=== PATIENT | male | born 1940 | race Caucasian/White ===

== ENCOUNTER 2021-11-17 13:58 | Emergency (ER) | payer MEDICARE, OTHER ==
[~2021-11-17] VITALS: Ht 177.8 cm; Wt 69.0 kg
[2021-11-17] MEDS ORDERED: DIATRIZOATE MEGLUMINE 300ML INFUS BTL UR ONE (14:44)
[2021-11-18 06:00] VITALS: BP 127/84
[2021-11-18] MEDS ORDERED: FINA5TAB11 PO (23:54)
[2021-11-18] MEDS ORDERED: TAMS-11 PO (23:54)
[2021-11-18] MEDS ORDERED: ALLO100T PO (23:54)
[2021-11-18] MEDS ORDERED: SILD20TA PO (23:54)
[2021-11-18] MEDS ORDERED: FURO20TA4 PO (23:54)
== END 2021-11-18 10:20 ==
LOC: ER 14:04
DX: T83.83XA Hemorrhage due to genitourinary prosthetic devices, implants and grafts, initial encounter (principal); I11.0 Hypertensive heart disease with heart failure; I50.9 Heart failure, unspecified; F03.90 Unspecified dementia, unspecified severity, without behavioral disturbance, psychotic disturbance, mood disturbance, and anxiety; Y84.6 Urinary catheterization as the cause of abnormal reaction of the patient, or of later complication, without mention of misadventure at the time of the procedure; Y92.128 Other place in nursing home as the place of occurrence of the external cause
CPT/HCPCS: 51610; 93005; 99285; Q9958; A4315

== ENCOUNTER 2021-11-18 10:37 | Inpatient (IN) | payer MEDICARE, OTHER ==
[~2021-11-18] VITALS: Ht 165.1 cm; Wt 65.1 kg
[2021-11-18] MEDS ORDERED: ALBUTEROL (0.083%) 2.5MG/3ML NEB HHN STA (11:34)
[2021-11-18] MEDS ORDERED: IPRATROPIUM BROMIDE (0.02%) 0.5MG/2.5ML NEB HHN STA (11:34)
[2021-11-18 12:00] LABS: HEMATOCRIT. 35.9 % (42.0-52.0); MEAN CORPUSCULAR HEMOGLOBIN 30.3 pg (28.0-32.0); MEAN CORPUSCULAR VOLUME 90.7 fL (80.0-94.0); MEAN PLATELET VOLUME 7.8 fl (7.4-10.4); PLATELET 256 x1000/uL (130-400); RED BLOOD CELL COUNT 3.96 mill/uL (4.7-6.1); RED CELL DISTRIBUTION WIDTH 14.9 % (11.6-14.6)
[2021-11-18 12:04] LABS: CHLORIDE 105 mEq/L (98-107)
[2021-11-18 12:20] LABS: BG BASE EXCESS 2.6 mmol/L (-2.0-2.0); BG CARBOXYHEMOGLOBIN 0.3 % (0.5-1.5); BG DEOXYHEMOGLOBIN 2.1 % (0.0-5.0); BG HCO3 ACT 28.3 mmol/L (22.0-26.0); BG METHEMOGLOBIN 0.1 % (0.0-1.5); BG OXYGEN SATURATION 97.9 % (92.0-98.5); BG OXYHEMOGLOBIN 97.5 % (94.0-97.0); BG PCO2 48.2 mmHg (35.0-45.0); BG PH 7.386 (7.350-7.450); BG PO2 115.2 mmHg (75.0-100.0); BG SAMPLE SITE RIGHT RADIAL; BG TOTAL HEMOGLOBIN 12.3 g/dL (12.0-18.0); BG VENT MODE MASK - SIMPLE
[2021-11-18] MEDS ORDERED: FUROSEMIDE 20MG/2ML VIAL IVP ONE (12:30)
[2021-11-18 12:38] LABS: PLATELET ESTIMATE NORMAL
[2021-11-18 15:30] VITALS: BP 124/58
[2021-11-18] MEDS ORDERED: POTASSIUM CHLORIDE 20MEQ TABLET SR PO SCH (15:30)
[2021-11-18 16:00] VITALS: BP 125/60
[2021-11-18] MEDS ORDERED: DIGOXIN 500MCG/2ML AMP IV SCH (18:45)
[2021-11-18] MEDS: METOPROLOL TARTRATE 25MG TABLET PO SCH (18:51)
[2021-11-18 18:54] LABS: CLARITY URINE CLEAR (CLEAR); COLOR URINE YELLOW (YELLOW); KETONES URINE NEGATIVE (NEGATIVE); LEUKOCYTE ESTERASE URINE TRACE (NEGATIVE); NITRITE URINE NEGATIVE (NEGATIVE); OCCULT BLOOD URINE 2+ (NEGATIVE); PH URINE 5.5 (4.5-8.0); PROTEIN URINE NEGATIVE (NEGATIVE); SPECIFIC GRAVITY URINE 1.011 (1.005-1.030)
[2021-11-18 19:29] LABS: CHLORIDE 106 mEq/L (98-107)
[2021-11-18 20:00] VITALS: BP 102/54
[2021-11-18] MEDS: PIPERACILLIN/TAZOBACTAM 3.375 G in DEXTROSE 5% WATER 50 ML IV SCH (20:38)
[2021-11-18] MEDS: ENOXAPARIN 40MG/0.4ML SYR SUBCUT SCH (20:39)
[2021-11-18] MEDS ORDERED: IPRATROPIUM BROMIDE (0.02%) 0.5MG/2.5ML NEB HHN PRN (20:45)
[2021-11-18] MEDS ORDERED: TAMS-11 PO (23:54)
[2021-11-18] MEDS ORDERED: FURO20TA4 PO (23:54)
[2021-11-18] MEDS ORDERED: SILD20TA PO (23:54)
[2021-11-18] MEDS ORDERED: ALLO100T PO (23:54)
[2021-11-18] MEDS ORDERED: FINA5TAB11 PO (23:54)
[2021-11-18 23:56] LABS: HEMATOCRIT 33.4 % (42.0-52.0); HEMOGLOBIN 11.2 g/dL (14.0-18.0); MEAN CORPUSCULAR HEMOGLOBIN 30.6 pg (28.0-32.0); MEAN CORPUSCULAR VOLUME 91.5 fL (80.0-94.0); PLATELET 257 x1000/uL (130-400); RED BLOOD CELL COUNT 3.65 mill/uL (4.7-6.1)
[2021-11-19] VITALS: BP 112/58
[2021-11-19 04:00] VITALS: BP 120/65
[2021-11-19] MEDS: PIPERACILLIN/TAZOBACTAM 3.375 G in DEXTROSE 5% WATER 50 ML IV SCH ×3 (05:31→21:21)
[2021-11-19] MEDS: METOPROLOL TARTRATE 25MG TABLET PO SCH ×2 (05:43→21:21)
[2021-11-19 08:00] VITALS: BP 126/80
[2021-11-19] MEDS ORDERED: FUROSEMIDE 40MG/4ML VIAL IVP SCH (09:00)
[2021-11-19] MEDS: IPRATROPIUM BROMIDE (0.02%) 0.5MG/2.5ML NEB HHN SCH ×3 (09:16→18:00)
[2021-11-19] MEDS: SPIRONOLACTONE 25MG TABLET PO SCH (09:34)
[2021-11-19 09:48] LABS: BASOPHILS % 0.7 % (0.0-2.0); HEMATOCRIT. 36.2 % (42.0-52.0); HEMOGLOBIN. 11.9 g/dL (14.0-18.0); LYMPHOCYTES % 9.6 % (20.0-50.0); MEAN CORPUSCULAR HEMOGLOBIN 30.2 pg (28.0-32.0); MEAN CORPUSCULAR VOLUME 91.9 fL (80.0-94.0); NEUTROPHILS % 83.7 % (40.0-76.0); PLATELET 282 x1000/uL (130-400); RED BLOOD CELL COUNT 3.94 mill/uL (4.7-6.1); RED CELL DISTRIBUTION WIDTH 15.3 % (11.6-14.6)
[2021-11-19 09:52] LABS: CHLORIDE 106 mEq/L (98-107)
[2021-11-19] MEDS ORDERED: FUROSEMIDE 20MG/2ML VIAL IVP NR (10:45)
[2021-11-19] MEDS ORDERED: POTASSIUM CHLORIDE 20MEQ TABLET SR PO NR (11:00)
[2021-11-19 12:00] VITALS: BP 113/58
[2021-11-19] MEDS ORDERED: DIGOXIN 500MCG/2ML AMP IV PRN (14:45)
[2021-11-19] MEDS ORDERED: METOPROLOL TARTRATE 5MG/5ML VIAL IV PRN (14:45)
[2021-11-19 16:00] VITALS: BP 110/59
[2021-11-19] MEDS: FUROSEMIDE 40MG/4ML VIAL IVP SCH (17:19)
[2021-11-19 20:00] VITALS: BP 115/60
[2021-11-19] MEDS: ENOXAPARIN 40MG/0.4ML SYR SUBCUT SCH (21:16)
[2021-11-20] VITALS: BP 120/76
[2021-11-20 04:00] VITALS: BP 116/63
[2021-11-20] MEDS: PIPERACILLIN/TAZOBACTAM 3.375 G in DEXTROSE 5% WATER 50 ML IV SCH ×3 (05:17→21:14)
[2021-11-20] MEDS: FUROSEMIDE 40MG/4ML VIAL IVP SCH ×2 (05:17→17:57)
[2021-11-20 08:00] VITALS: BP 101/64
[2021-11-20] MEDS: IPRATROPIUM BROMIDE (0.02%) 0.5MG/2.5ML NEB HHN SCH ×4 (08:35→21:25)
[2021-11-20] MEDS: METOPROLOL TARTRATE 25MG TABLET PO SCH ×2 (08:51→20:42)
[2021-11-20] MEDS: SPIRONOLACTONE 25MG TABLET PO SCH (08:52)
[2021-11-20 09:25] LABS: CHLORIDE 99 mEq/L (98-107)
[2021-11-20] MEDS ORDERED: IOHEXOL-350 100 ML BOTTLE ONE (09:29)
[2021-11-20 12:00] VITALS: BP 100/57
[2021-11-20 12:48] LABS: BASOPHILS % 0.8 % (0.0-2.0); EOSINOPHILS % 1.9 % (0.0-5.0); HEMATOCRIT. 35.9 % (42.0-52.0); HEMOGLOBIN. 11.8 g/dL (14.0-18.0); LYMPHOCYTES % 9.6 % (20.0-50.0); MEAN CORPUSCULAR HEMOGLOBIN 30.3 pg (28.0-32.0); MEAN CORPUSCULAR VOLUME 92.3 fL (80.0-94.0); MEAN PLATELET VOLUME 8.2 fl (7.4-10.4); MONOCYTES % 5.7 % (2.0-8.0); PLATELET 252 x1000/uL (130-400); RED BLOOD CELL COUNT 3.89 mill/uL (4.7-6.1); RED CELL DISTRIBUTION WIDTH 15.4 % (11.6-14.6)
[2021-11-20 16:00] VITALS: BP 96/56
[2021-11-20 17:24] LABS: CHLORIDE 96 mEq/L (98-107)
[2021-11-20 20:00] VITALS: BP 98/54
[2021-11-20] MEDS: ENOXAPARIN 40MG/0.4ML SYR SUBCUT SCH (20:43)
[2021-11-21] VITALS: BP 93/51
[2021-11-21] MEDS: IPRATROPIUM BROMIDE (0.02%) 0.5MG/2.5ML NEB HHN SCH ×4 (01:29→20:44)
[2021-11-21 04:00] VITALS: BP 100/50
[2021-11-21] MEDS: PIPERACILLIN/TAZOBACTAM 3.375 G in DEXTROSE 5% WATER 50 ML IV SCH ×3 (05:11→21:46)
[2021-11-21] MEDS: FUROSEMIDE 40MG/4ML VIAL IVP SCH ×2 (05:11→17:02)
[2021-11-21 08:00] VITALS: BP 106/55
[2021-11-21] MEDS: METOPROLOL TARTRATE 25MG TABLET PO SCH ×2 (09:00→20:59)
[2021-11-21] MEDS: SPIRONOLACTONE 25MG TABLET PO SCH (09:02)
[2021-11-21 09:12] LABS: BG BASE EXCESS 12.5 mmol/L (-2.0-2.0); BG DEOXYHEMOGLOBIN 3.1 % (0.0-5.0); BG FRACTION INSPIRED OXYGEN 50; BG HCO3 ACT 38.6 mmol/L (22.0-26.0); BG METHEMOGLOBIN 0.3 % (0.0-1.5); BG OXYGEN SATURATION 96.9 % (92.0-98.5); BG OXYHEMOGLOBIN 96.6 % (94.0-97.0); BG PCO2 57.4 mmHg (35.0-45.0); BG PH 7.446 (7.350-7.450); BG PO2 91.7 mmHg (75.0-100.0); BG SAMPLE SITE RIGHT RADIAL; BG TOTAL HEMOGLOBIN 12.1 g/dL (12.0-18.0); BG VENT MODE HIGH FLOW
[2021-11-21 12:00] VITALS: BP 94/40
[2021-11-21 16:00] VITALS: BP 105/54
[2021-11-21 18:12] LABS: BASOPHILS % 0.6 % (0.0-2.0); EOSINOPHILS % 1.3 % (0.0-5.0); HEMOGLOBIN. 11.5 g/dL (14.0-18.0); LYMPHOCYTES % 11.6 % (20.0-50.0); MEAN CORPUSCULAR HEMOGLOBIN 30.5 pg (28.0-32.0); MEAN CORPUSCULAR VOLUME 90.6 fL (80.0-94.0); MONOCYTES % 6.5 % (2.0-8.0); PLATELET 266 x1000/uL (130-400); RED BLOOD CELL COUNT 3.75 mill/uL (4.7-6.1); RED CELL DISTRIBUTION WIDTH 14.9 % (11.6-14.6)
[2021-11-21 18:17] LABS: CHLORIDE 91 mEq/L (98-107)
[2021-11-21 20:00] VITALS: BP 99/55
[2021-11-21] MEDS: ENOXAPARIN 40MG/0.4ML SYR SUBCUT SCH (21:46)
[2021-11-22] VITALS: BP 97/49
[2021-11-22] MEDS: IPRATROPIUM BROMIDE (0.02%) 0.5MG/2.5ML NEB HHN SCH ×4 (02:17→21:01)
[2021-11-22 04:00] VITALS: BP 96/49
[2021-11-22] MEDS: FUROSEMIDE 40MG/4ML VIAL IVP SCH (06:00)
[2021-11-22] MEDS: PIPERACILLIN/TAZOBACTAM 3.375 G in DEXTROSE 5% WATER 50 ML IV SCH ×3 (06:46→20:27)
[2021-11-22 07:37] LABS: CHLORIDE 94 mEq/L (98-107)
[2021-11-22 08:00] VITALS: BP 91/49
[2021-11-22] MEDS ORDERED: POTASSIUM CHLORIDE 20MEQ TABLET SR PO SCH ×2 (08:15→12:15)
[2021-11-22] MEDS: METOPROLOL TARTRATE 25MG TABLET PO SCH ×2 (09:00→20:27)
[2021-11-22] MEDS: SPIRONOLACTONE 25MG TABLET PO SCH (09:00)
[2021-11-22 12:00] VITALS: BP 103/49
[2021-11-22] MEDS ORDERED: SODIUM CHLORIDE 0.9% 250 ML IV NR (13:00)
[2021-11-22 16:00] VITALS: BP 112/51
[2021-11-22 20:00] VITALS: BP 109/86
[2021-11-22] MEDS: ENOXAPARIN 40MG/0.4ML SYR SUBCUT SCH (20:27)
[2021-11-23] VITALS (7 sets, daily range): BP systolic 95–120; BP diastolic 56–69
[2021-11-23] MEDS: IPRATROPIUM BROMIDE (0.02%) 0.5MG/2.5ML NEB HHN SCH ×4 (01:06→20:18)
[2021-11-23] MEDS: PIPERACILLIN/TAZOBACTAM 3.375 G in DEXTROSE 5% WATER 50 ML IV SCH ×2 (05:09→13:55)
[2021-11-23] MEDS: METOPROLOL TARTRATE 25MG TABLET PO SCH (09:06)
[2021-11-23] MEDS: SPIRONOLACTONE 25MG TABLET PO SCH (09:06)
[2021-11-23] MEDS ORDERED: POTASSIUM CHLORIDE 20MEQ TABLET SR PO NR (14:30)
[2021-11-23 16:25] LABS: BASOPHILS % 0.4 % (0.0-2.0); EOSINOPHILS % 1.1 % (0.0-5.0); HEMATOCRIT. 36.4 % (42.0-52.0); LYMPHOCYTES % 7.8 % (20.0-50.0); MEAN CORPUSCULAR HEMOGLOBIN 30.1 pg (28.0-32.0); MEAN CORPUSCULAR VOLUME 90.9 fL (80.0-94.0); MEAN PLATELET VOLUME 7.6 fl (7.4-10.4); MONOCYTES % 5.6 % (2.0-8.0); NEUTROPHILS % 85.1 % (40.0-76.0); PLATELET 260 x1000/uL (130-400); RED CELL DISTRIBUTION WIDTH 15.5 % (11.6-14.6)
[2021-11-23 16:33] LABS: CHLORIDE 97 mEq/L (98-107)
[2021-11-23] MEDS: METOPROLOL TARTRATE 50MG TABLET PO SCH (20:27)
[2021-11-23] MEDS: ENOXAPARIN 40MG/0.4ML SYR SUBCUT SCH (20:40)
[2021-11-24] VITALS: BP 131/59
[2021-11-24] MEDS: IPRATROPIUM BROMIDE (0.02%) 0.5MG/2.5ML NEB HHN SCH ×4 (03:30→21:20)
[2021-11-24 04:00] VITALS: BP 105/51
[2021-11-24] MEDS: DIGOXIN 500MCG/2ML AMP IV PRN ×2 (05:06→09:40)
[2021-11-24 08:00] VITALS: BP 115/60
[2021-11-24] MEDS: SPIRONOLACTONE 25MG TABLET PO SCH (08:41)
[2021-11-24] MEDS: METOPROLOL TARTRATE 50MG TABLET PO SCH ×2 (08:41→20:50)
[2021-11-24 12:00] VITALS: BP 105/54
[2021-11-24 16:00] VITALS: BP 100/62
[2021-11-24] MEDS ORDERED: METO-539 PO (16:57)
[2021-11-24] MEDS ORDERED: SPIR25TA PO (16:57)
[2021-11-24] MEDS ORDERED: DILT-26 PO (17:58)
[2021-11-24] MEDS ORDERED: APIX5TAB PO (17:58)
[2021-11-24] MEDS ORDERED: POTA-202 PO (17:59)
[2021-11-24] MEDS ORDERED: FURO20TA4 PO (18:00)
[2021-11-24] MEDS: FINASTERIDE 5MG TABLET PO SCH (18:33)
[2021-11-24] MEDS: TAMSULOSIN HCL 0.4MG SR CAPSULE PO SCH (18:34)
[2021-11-24 20:00] VITALS: BP 98/51
[2021-11-24] MEDS: ENOXAPARIN 40MG/0.4ML SYR SUBCUT SCH (20:00)
[2021-11-24] MEDS: SILDENAFIL CITRATE 20MG TABLET PO SCH (21:47)
[2021-11-25] VITALS: BP 101/49
[2021-11-25] MEDS: IPRATROPIUM BROMIDE (0.02%) 0.5MG/2.5ML NEB HHN SCH ×4 (02:12→20:03)
[2021-11-25 04:00] VITALS: BP 103/55
[2021-11-25] MEDS: SILDENAFIL CITRATE 20MG TABLET PO SCH ×3 (05:38→22:00)
[2021-11-25 08:00] VITALS: BP 96/63
[2021-11-25] MEDS: METOPROLOL TARTRATE 50MG TABLET PO SCH ×2 (09:00→20:29)
[2021-11-25] MEDS: SPIRONOLACTONE 25MG TABLET PO SCH (09:19)
[2021-11-25] MEDS: FINASTERIDE 5MG TABLET PO SCH (09:19)
[2021-11-25 12:00] VITALS: BP 93/50
[2021-11-25 16:00] VITALS: BP 100/59
[2021-11-25] MEDS: TAMSULOSIN HCL 0.4MG SR CAPSULE PO SCH (18:12)
[2021-11-25] MEDS ORDERED: DIGOXIN 500MCG/2ML AMP IV NR (19:45)
[2021-11-25 20:00] VITALS: BP 90/52
[2021-11-25] MEDS: ENOXAPARIN 40MG/0.4ML SYR SUBCUT SCH (20:01)
[2021-11-26] VITALS: BP 100/56
[2021-11-26] MEDS: IPRATROPIUM BROMIDE (0.02%) 0.5MG/2.5ML NEB HHN SCH ×2 (03:06→12:59)
[2021-11-26 04:00] VITALS: BP 104/53
[2021-11-26] MEDS: SILDENAFIL CITRATE 20MG TABLET PO SCH (06:00)
[2021-11-26 08:00] VITALS: BP 106/46
[2021-11-26] MEDS ORDERED: ALLOPURINOL 100 MG TABLET PO SCH (09:00)
[2021-11-26] MEDS: METOPROLOL TARTRATE 50MG TABLET PO SCH (09:32)
[2021-11-26] MEDS: FINASTERIDE 5MG TABLET PO SCH (09:32)
[2021-11-26] MEDS: SPIRONOLACTONE 25MG TABLET PO SCH (09:33)
[2021-11-26 10:54] VITALS: BP 106/46
[2021-11-26 12:30] VITALS: BP 98/56
[2021-11-26] MEDS ORDERED: DIGOXIN 125MCG TABLET PO SCH (18:00)
== END 2021-11-26 15:27 | DRG 291 ==
LOC: ER 10:37 → EDBEDREQ 11:16 → EDBEDREQSVC 11:22 → EDBEDREQ 11:22 → 7WST 12:21 → ENRESERV 12:41 → 7WST 11-19 14:55
PROVIDERS: ADMIT Family Medicine; ATTEND Family Medicine
PROC: 5A0945A Assistance with Respiratory Ventilation, 24-96 Consecutive Hours, High Flow/Velocity Cannula (ICD-10-PCS; principal; 2021-11-19)
DX: I11.0 Hypertensive heart disease with heart failure (principal); E43 Unspecified severe protein-calorie malnutrition; J96.21 Acute and chronic respiratory failure with hypoxia; I50.43 Acute on chronic combined systolic (congestive) and diastolic (congestive) heart failure; I48.11 Longstanding persistent atrial fibrillation; J44.9 Chronic obstructive pulmonary disease, unspecified; Z20.822 Contact with and (suspected) exposure to COVID-19; F03.90 Unspecified dementia, unspecified severity, without behavioral disturbance, psychotic disturbance, mood disturbance, and anxiety; D64.9 Anemia, unspecified; E87.6 Hypokalemia; I27.20 Pulmonary hypertension, unspecified; R31.9 Hematuria, unspecified; N40.1 Benign prostatic hyperplasia with lower urinary tract symptoms; R33.8 Other retention of urine; I08.1 Rheumatic disorders of both mitral and tricuspid valves; F17.200 Nicotine dependence, unspecified, uncomplicated; Z79.01 Long term (current) use of anticoagulants; Z99.81 Dependence on supplemental oxygen; Z66 Do not resuscitate; Z68.23 Body mass index [BMI] 23.0-23.9, adult
CPT/HCPCS: 36415; 36600; 71045; 71275; 80048; 80053; 80162; 81003; 82040; 82247; 82375; 82805; 83735; 83880; 84075; 84145; 84155; 84450; 84460; 84484; 85025; 85027; 85379; 87426; 93005; 93306; 93970; 94640; 97162; 97166; 97530; 99291; C1893; C9803; J1160; J1650; J1940; J2543; J7060; Q9967